=== PATIENT | female | born 1970 | race Caucasian/White ===

== ENCOUNTER → 2021-05-28 | Outpatient (CLI) | payer BC ==
[~2021-05-28] MED LIST: PYRIDIUM200 MG PO
== END ==
LOC: KOH-I 12:19
DX: Z01.811 Encounter for preprocedural respiratory examination (principal)
CPT/HCPCS: 71046

== ENCOUNTER → 2021-11-11 | Outpatient (CLI) | payer BC | LOC: EXRD 13:17 | DX: R59.0 Localized enlarged lymph nodes (principal) | CPT/HCPCS: 76536 ==